=== PATIENT | female | born 1985 | race Hispanic/Latino ===

== ENCOUNTER 2020-11-17 07:58 | Outpatient (CLI) | payer OTHER, SELFPAY ==
[2020-11-17 20:43] LABS: SARS-CoV-2 PCR by NAA Not Detected (NotDetected)
== END 2020-11-17 07:59 | disposition home or self-care (01) ==
LOC: CSHLAB 07:58
PROVIDERS: ATTEND Student in an Organized Health Care Education/Training Program
DX: Z20.822 Contact with and (suspected) exposure to COVID-19 (principal)
CPT/HCPCS: 87635; U0003; U0005

== ENCOUNTER 2020-11-19 09:32 | Day surgery (SDC) | payer MEDICAID, OTHER, SELFPAY ==
[2020-11-19 09:58] VITALS: BMI 28.3
[2020-11-19] MEDS ORDERED: Iron Sucrose Complex 500 MG in Sodium Chloride 0.9% 250 ML 250 ML IVPB SCH (10:30)
[2020-11-19] MEDS ORDERED: Acetaminophen 500 MG TAB PO SCH (10:30)
== END 2020-11-19 15:30 | disposition home or self-care (01) ==
LOC: CSHLD/OP 09:32
PROVIDERS: ATTEND Student in an Organized Health Care Education/Training Program
DX: O99.013 Anemia complicating pregnancy, third trimester (principal); D50.9 Iron deficiency anemia, unspecified; O99.613 Diseases of the digestive system complicating pregnancy, third trimester; K21.9 Gastro-esophageal reflux disease without esophagitis; Z79.899 Other long term (current) drug therapy; Z3A.36 36 weeks gestation of pregnancy
CPT/HCPCS: 96361; 96365; 96366; 99283; J1756; J7050

== ENCOUNTER 2020-11-25 09:54 | Inpatient (IN) | payer OTHER, SELFPAY ==
[~2020-11-25 09:54] MED LIST: Bupivacaine 0.25% HCL 30 ML VIAL ONE; Lidocaine 2% MPF 10 ML AMP (For Epidural Use) ONE
[2020-11-25 10:25] VITALS: BMI 30.2
[2020-11-25 10:45] LABS: Amnisure Test RUPTURE DETECTED (No Rupture)
[2020-11-25] MEDS ORDERED: hydrALAZINE 20 MG/ML VIAL SLOW IVP PRN ×3 (10:45→21:38)
[2020-11-25] MEDS ORDERED: Promethazine HCl 25 MG/ML VIAL IM PRN ×2 (10:50→21:38)
[2020-11-25] MEDS ORDERED: Acetaminophen 500 MG TAB PO PRN (10:50)
[2020-11-25] MEDS ORDERED: Ibuprofen 800 MG TAB PO PRN (10:50)
[2020-11-25] MEDS ORDERED: Misoprostol 200 MCG TAB PR PRN (10:50)
[2020-11-25] MEDS ORDERED: Lidocaine 1% (PF) 30 ML VIAL SC PRN (10:50)
[2020-11-25] MEDS ORDERED: Butorphanol Tartrate 1 MG/ML VIAL SLOW IVP PRN (10:50)
[2020-11-25] MEDS ORDERED: NS / Oxytocin 40 units/1000ml 1,000 ML IV PRN (10:50)
[2020-11-25] MEDS ORDERED: Ondansetron PF 4 MG/2 ML Vial IVP PRN ×2 (10:50→21:38)
[2020-11-25] MEDS ORDERED: Lactated Ringer's 1,000 ML IV SCH (11:00)
[2020-11-25] MEDS ORDERED: Misoprostol 100 MCG TAB VAG SCH (11:00)
[2020-11-25] MEDS ORDERED: Misoprostol 100 MCG TAB PO SCH (11:30)
[2020-11-25 12:28] LABS: Hemoglobin 9.2 g/dL (12.0-15.5); Mean Corpuscular HGB CONC 31.6 g/dL (32.0-36.0); Mean Corpuscular Hemoglobin 27.1 pg (27.0-33.0); Mean Corpuscular Volume 85.8 fl (81.6-98.3); Mean Platelet Volume 11.6 fl (7.4-10.4); Platelet Count 204 10x3/uL (150-450); RBC Distribution Width 15.4 % (11.5-14.5); Red Blood Cell (RBC) Count 3.39 10x6/uL (3.90-5.03); White Blood Cell (WBC) Count 7.6 10x3/uL (3.5-10.5)
[2020-11-25 13:02] LABS: Hep B Surf Ag Non-Reactive S/CO (NonReactive); Syphilis Antibody Nonreactive (Nonreactive); Syphilis Antibody Index 0.04 S/CO (<1.00 Non-Reactive)
[2020-11-25 13:08] LABS: HBSAg Index 0.14 S/CO (0-0.99)
[2020-11-25] MEDS ORDERED: NS w/ Oxytocin 30 units 500 ML ONE ×2 (15:10→19:59)
[2020-11-25] MEDS ORDERED: Fentanyl 4 mcg/Bup 0.1% Cadd 100 ML ONE (16:35)
[2020-11-25 20:58] LABS: SARS-CoV-2 PCR by NAA Not Detected (NotDetected)
[2020-11-25] MEDS ORDERED: NS / Oxytocin 40 units/1000ml 1,000 ML IV SCH (21:38)
[2020-11-25] MEDS ORDERED: Preparation H Ointment 28 GM TUBE PR PRN (21:38)
[2020-11-25] MEDS ORDERED: Lanolin Ointment 7 GM TUBE TOP PRN (21:38)
[2020-11-25] MEDS ORDERED: diphenhydrAMINE 25 MG CAP PO PRN (21:38)
[2020-11-25] MEDS ORDERED: Benzocaine-Menthol 82.5 ML CAN TOP PRN (21:38)
[2020-11-25] MEDS ORDERED: Bisacodyl 10 MG SUPP PR PRN (21:38)
[2020-11-25] MEDS ORDERED: Milk Of Magnesia 30 ML UDCUP PO PRN (21:38)
[2020-11-25] MEDS: Docusate Calcium (SURFAK) 240 MG CAP PO SCH (22:46)
[2020-11-25] MEDS: Ibuprofen 800 MG TAB PO SCH (23:00)
[2020-11-26 05:29] LABS: Hemoglobin 8.3 g/dL (12.0-15.5); Mean Corpuscular HGB CONC 31.7 g/dL (32.0-36.0); Mean Corpuscular Hemoglobin 27.4 pg (27.0-33.0); Mean Corpuscular Volume 86.5 fl (81.6-98.3); Mean Platelet Volume 11.6 fl (7.4-10.4); Platelet Count 174 10x3/uL (150-450); RBC Distribution Width 15.3 % (11.5-14.5); Red Blood Cell (RBC) Count 3.03 10x6/uL (3.90-5.03); White Blood Cell (WBC) Count 9.3 10x3/uL (3.5-10.5)
[2020-11-26] MEDS: Ibuprofen 800 MG TAB PO SCH ×2 (05:53→14:29)
[2020-11-26] MEDS ORDERED: Adacel (T-DAP) 0.5 ML SYRINGE IM ONE (09:00)
[2020-11-26] MEDS ORDERED: Prenatal Vitamin 1 TAB PO SCH (09:00)
[2020-11-26] MEDS: Docusate Calcium (SURFAK) 240 MG CAP PO SCH (09:52)
[2020-11-26] MEDS: Ferrous Sulfate 325 MG TAB PO SCH ×2 (09:53→17:14)
[2020-11-26 21:53] VITALS: BP 104/60; TEMP 98.2
== END 2020-11-26 19:40 | disposition home or self-care (01) | DRG 806 ==
LOC: CSHLD/OP 09:54 → CSHLD 10:58 → CSHPP 22:10
PROVIDERS: ADMIT Obstetrics & Gynecology; ATTEND Obstetrics & Gynecology
PROC: 10E0XZZ Delivery of Products of Conception, External Approach (ICD-10-PCS; principal; 2020-11-25)
DX: O42.02 Full-term premature rupture of membranes, onset of labor within 24 hours of rupture (principal); O72.1 Other immediate postpartum hemorrhage; Z37.0 Single live birth; Z20.822 Contact with and (suspected) exposure to COVID-19; Z3A.37 37 weeks gestation of pregnancy; O99.02 Anemia complicating childbirth; D50.9 Iron deficiency anemia, unspecified
CPT/HCPCS: 36415; 51702; 84112; 85027; 86780; 86850; 86900; 86901; 87340; 87635; 99285; J2590; S0020; U0003; U0005